=== PATIENT | male | born 1995 | race Hispanic/Latino ===

== ENCOUNTER 2025-09-20 20:33 | Inpatient (IN) | payer OTHER, SELFPAY ==
[2025-09-20] VITALS (12 sets, daily range): BP systolic 128–142; BP diastolic 66–86; PULSE 116–154; RESP 12–28; TEMP 36.8–37.3; O2SAT 98–100; BMI 32.1
--- NOTE | 2025-09-20 20:39 | EKG_ITS ---
[address] [address] Test Date: 2025-09-20 Pat Name: Jose Antonio Sewell Department: Room: Gender: Male [employer] Supervisor: VIKAS : 1995 Requested By: Order Number: [id number] Reading MD: Mahendra Chatman MD Measurements Intervals [place] Rate: 150 P: 74 TN: 124 QRS: 80 QRSD: 76 T: 73 QT: 334 QTc: 527 Interpretive Statements Critical Test Result: High HR Sinus tachycardia Electronically Signed On 09-21-2025 7:33:13 PDT by Mahendra Chatman MD
[2025-09-20] MEDS: ALBUTEROL 2.5 MG/3 ML NEB (ADULT) 10 MG INH (20:48)
[2025-09-20] MEDS: MAGNESIUM SULFATE 2 GM/50 ML PIGGYBACK IV (20:48)
[2025-09-20] MEDS: IPRATROPIUM 0.5 MG/2.5 ML NEB 2 MG INH (20:48)
--- NOTE | 2025-09-20 20:48 | ED.ASTHMA ---
HPI - Asthma General Chief Complaint: Asthma Stated Complaint: SOB, asthma Time Seen by Provider: 09/20/25 20:36 Source: EMS Mode of arrival: EMS History of Present Illness HPI Narrative: 30-year-old male with history of asthma, had sudden onset shortness of breath, difficulty breathing, EMS called, they administered intramuscular epinephrine, no hives or tongue swelling or lip swelling, during transport was also given IV Solu-Medrol and breathing treatment. Still quite short of breath with tachycardia and wheezing on arrival. No recent cough or fevers. No leg pain or swelling symptoms. No known skin rashes or itching or allergic reaction like symptoms. Unclear trigger to his shortness of breath. No trauma or injury. No new medications. No known drug use. Later arriving significant other reports that patient was in [facility] emergency department 2 weeks ago with abdominal pain, CT scan then did not show appendicitis, concern for ?stomach bug? discharge without antibiotics to home. Related Data Allergies Allergy/AdvReac Type Severity Reaction Status Date / Time No Known Drug Allergies Allergy Verified 09/20/25 20:42 Patient History Social History Smoking Status: Never smoker Smoking Status: Never smoker Exam Narrative Exam Narrative: GENERAL: Well-developed patient, in mild distress. HEAD: Atraumatic. Normocephalic. EYES: Pupils equal round and reactive. Extraocular motions intact. No scleral icterus. No injection or drainage. ENT: Nose without bleeding, purulent drainage. Throat without erythema, tonsillar hypertrophy or exudate. Airway patent. NECK: Trachea midline. Non tender CARDIOVASCULAR: Regular rate and rhythm without murmurs, gallops, or rubs. RESPIRATORY: Clear to auscultation. Breath sounds equal bilaterally. No wheezes, rales, or rhonchi. GASTROINTESTINAL: Abdomen soft, non-tender, nondistended. EXTREMITIES: No edema or joint tenderness. BACK: Nontender without deformity or crepitance. No flank tenderness. NEURO: AOx3. Motor functions grossly nonfocal. SKIN: No rash or erythema of visible areas Initial Vital Signs Initial Vital Signs: Vital Signs Pulse Rate 154 H 09/20/25 20:36 Pulse Oximetry 99 09/20/25 20:36 Course Orders Ordered: ED Orders 09/20/25 21:34 XR chest 1V Stat 09/20/25 21:45 CT abdomen pelvis w con Stat 09/20/25 21:46 CT angio chest PE protocol Stat 09/20/25 22:00 Urine Culture Stat Urine Microscopic Stat 09/20/25 23:33 Lactate (Lactic Acid) Stat 09/20/25 23:38 EKG-12 Lead Stat Acetaminophen (Acetaminophen 325 Mg Tablet) 650 mg PO Q6H PRN PRN Reason: Fever/Mild Pain (1-3) Al Hydrox/Mg Hydrox/Simethicone (Mag Hydrox/Alum/Simeth 30 Ml Udc) 30 ml PO Q6HR PRN PRN Reason: Dyspepsia Albuterol (Albuterol 2.5 Mg/3 Ml Neb (Adult)) 2.5 mg INH [id number] PRN PRN Reason: Shortness Of Breath Albuterol/Ipratropium (Albuterol/Ipratropium 3 Ml Ampul) 3 ml INH [id number] MARTIN Azithromycin (Azithromycin 250 Mg Tablet) 500 mg PO BEDTIME MARTIN Guaifenesin (Guaifenesin Er 600 Mg Tab) 600 mg PO Q12HR PRN PRN Reason: Cough Sodium Chloride (Normal Saline 0.9%) 1,000 mls @ 125 mls/hr IV CONT [facility] Last Admin: 09/21/25 03:00 Dose: 125 mls/hr Documented By: FM Ibuprofen (Ibuprofen 600 Mg Tablet) 600 mg PO Q6H PRN PRN Reason: Fever/Mild Pain (1-3) Lorazepam (Lorazepam 1 Mg Tablet) 1 mg PO Q6HR PRN PRN Reason: Anxiety Last Admin: 09/21/25 02:15 Dose: 1 mg Documented By: FM Methylprednisolone (Methylprednisolone Succ 125 Mg/2 Ml Vial) 125 mg IV Q6H [facility] Last Admin: 09/21/25 02:17 Dose: 125 mg Documented By: FM Montelukast Sodium (Montelukast 10 Mg Tablet) 10 mg PO DAILY [facility] Naloxone HCl (Naloxone 0.4 Mg/Ml Vial) 0.2 mg IV Q2MIN PRN PRN Reason: Opiate Reversal Ondansetron HCl (Ondansetron 4 Mg/2 Ml Inj) 4 mg IV Q8HR PRN PRN Reason: Nausea And Vomiting Oxycodone HCl (Oxycodone Ir 5 Mg Tablet) 5 mg PO Q3H PRN PRN Reason: Pain, Moderate (4-6) Last Admin: 09/21/25 02:17 Dose: 5 mg Documented By: FM Pantoprazole Sodium (Pantoprazole Dr 20 Mg Tablet) 20 mg PO 0600 MARTIN Sennosides (Sennosides 8.6 Mg Tablet) 17.2 mg PO BEDTIME MARTIN Discontinued Medications Albuterol (Albuterol 2.5 Mg/3 Ml Neb (Adult)) 10 mg INH NOW ONE Stop: 09/20/25 20:37 Last Admin: 09/20/25 20:48 Dose: 10 mg Documented By: YAZAN Hydromorphone HCl (Hydromorphone Hcl 0.5 Mg/0.5 Ml Syringe) 0.5 mg IV NOW ONE Stop: 09/20/25 23:29 Last Admin: 09/20/25 23:45 Dose: 0.5 mg Documented By: Magnesium Sulfate (Magnesium Sulfate) 2 gm in 50 mls @ 150 mls/hr IV NOW ONE Stop: 09/20/25 20:57 Last Infusion: 09/20/25 21:27 Dose: Infused Documented By: MANNY Co-signed By: Admin: 09/20/25 20:48 Dose: 150 mls/hr Documented By: MANNY Co-signed By: Azithromycin 500 mg/ Dextrose 250 mls @ 250 mls/hr IV NOW ONE Stop: 09/20/25 21:34 Last Infusion: 09/20/25 23:35 Dose: Infused Documented By: Admin: 09/20/25 22:21 Dose: 250 mls/hr Documented By: MANNY Sodium Chloride (Normal Saline 0.9%) 1,000 mls @ 1,000 mls/hr IV BOLUS ONE Stop: 09/20/25 22:38 Last Infusion: 09/20/25 23:36 Dose: Infused Documented By: Admin: 09/20/25 22:20 Dose: 1,000 mls/hr Documented By: MANNY Sodium Chloride (Normal Saline 0.9%) 1,000 mls @ 1,000 mls/hr IV BOLUS ONE Stop: 09/21/25 00:57 Last Admin: 09/21/25 00:09 Dose: 1,000 mls/hr Documented By: Ipratropium [place] (Ipratropium 0.5 Mg/2.5 Ml Neb) 2 mg INH NOW ONE Stop: 09/20/25 20:38 Last Admin: 09/20/25 20:48 Dose: 2 mg Documented By: PV Ondansetron HCl (Ondansetron 4 Mg/2 Ml Inj) 4 mg IV NOW ONE Stop: 09/20/25 22:34 Last Admin: 09/20/25 22:36 Dose: 4 mg Documented By: Potassium Chloride (Potassium Chloride 20 Meq/15 Ml Udc) 40 meq PO NOW ONE Stop: 09/20/25 23:57 Last Admin: 09/21/25 00:27 Dose: 40 meq Documented By: LISBETH Vital Signs Vital signs: Vital Signs - 8 hr 09/20/25 22:11 09/20/25 22:12 09/20/25 22:12 Temperature Pulse Rate 131 H 128 H Respiratory Rate 14 Blood Pressure 132/72 Pulse Oximetry 100 100 Oxygen Delivery Method Oxygen Flow Rate 09/20/25 22:30 09/20/25 22:30 09/20/25 23:00 Temperature Pulse Rate 121 H Respiratory Rate 16 Blood Pressure 140/86 131/77 Pulse Oximetry 99 Oxygen Delivery Method Nasal Cannula Oxygen Flow Rate 2 09/20/25 23:00 09/20/25 23:30 09/20/25 23:30 Temperature 98.2 F Pulse Rate 120 H 116 H Respiratory Rate 19 15 Blood Pressure 128/68 Pulse Oximetry 99 98 Oxygen Delivery Method Oxygen Flow Rate MDM - Asthma Lab Data Attestation: I reviewed the patient's lab results. Lab results narrative: White blood cell count 90103, hemoglobin 16, platelets adequate. VBG shows pH 7.33. Glucose 185. BUN 21 with creatinine 1.0, serum CO2 normal 24, potassium 3.0 low, sodium 142 normal. Slight ALT elevation, other liver functions normal. Lipase 79 normal. Troponin negative/unmeasurable. Urinalysis negative. Lactate 4.3 elevated. Blood cultures pending. COVID flu RSV negative. 09/20/25 20:50 09/20/25 20:50 Labs: Lab Results 09/20/25 09/20/25 09/20/25 Range/Units 20:50 20:55 20:57 WBC 20.1 H (4.5-11.0) X10^3/uL RBC 5.32 (4.5-5.9) X10^6/uL Hgb 16.0 (13.5-17.5) g/dL Hct 46.5 (41-53) % MCV 87.5 (80-100) fL MCH 30.1 (26-34) PG MCHC 34.4 (30-36) % RDW 13.0 (11.6-14.8) % Plt Count 301 (150-400) X10^3/uL Neut % (Auto) 79.1 H (50-75) % Lymph % (Auto) 14.6 L (25-40) % [place] % (Auto) 4.5 (3-14) % Eos % (Auto) 1.7 L (2-4) % Baso % (Auto) 0.1 (0-2) % Neut # (Auto) 98050 H (3180-6531) /uL Lymph # (Auto) 2900 (8454-4255) /uL [place] # (Auto) 900 (0-900) /uL Eos # (Auto) 300 (0-450) /uL Baso # (Auto) 0 (0-100) /uL VBG pH 7.33 (7.33-7.43) VBG pCO2 49.3 (45-50) mmHg VBG pO2 41 (35-45) mmHg VBG HCO3 26 (24-28) mmol/L VBG Total CO2 25 (24-29) mmol/L VBG O2 Saturation 71 (70-75) % VBG Base Excess -1.0 L (0-4) mmol/L FiO2 % 50.0 % % Sodium 142 (137-145) mmol/L Potassium 3.0 L (3.4-5.1) mmol/L Chloride 102 (98-107) mmol/L Carbon Dioxide 24 (22-32) mmol/L BUN 21 H (9-20) mg/dL Creatinine 1.00 (0.66-1.25) mg/dL Estimated GFR > 60 (>60) mL/min BUN/Creatinine Ratio 21.0 (6-22) Glucose 185 H (70-99) mg/dL Lactate (0.7-2.1) mmol/L Calcium 9.2 (8.4-10.2) mg/dL Magnesium 2.0 (1.6-2.3) mg/dL Total Bilirubin 0.8 (0.2-1.3) mg/dL AST 52 (17-59) IU/L ALT 58 H (<50) IU/L Alkaline Phosphatase 62 (38-126) U/L Troponin I < 0.012 (0.01-0.034) ng/mL NT-Pro-B Natriuret Pep < 20 (<125) pg/mL Total Protein 7.8 (6.3-8.2) g/dL Albumin 4.8 (3.5-5.0) g/dL Globulin 3.0 (1.7-4.1) g/dL Albumin/Globulin Ratio 1.6 (1.0-2.8) Lipase 79 (23-300) U/L Procalcitonin 0.053 (<0.5) ng/mL Urine RBC (0-5/HPF) Urine WBC (0-5/HPF) Ur Squamous Epith Cells (0-5/HPF) Urine Bacteria (None) Hyaline Casts (None) Urine Mucus (Negative) Vol Urine Centrifuged SARS-CoV-2 (PCR) Negative (Negative) Influenza A (RT-PCR) Flu a negative (NEGATIVE) Influenza B (RT-PCR) Flu b negative (NEGATIVE) RSV (PCR) Negative (Negative) 09/20/25 09/20/25 Range/Units 22:00 23:33 WBC (4.5-11.0) X10^3/uL RBC (4.5-5.9) X10^6/uL Hgb (13.5-17.5) g/dL Hct (41-53) % MCV (80-100) fL MCH (26-34) PG MCHC (30-36) % RDW (11.6-14.8) % Plt Count (150-400) X10^3/uL Neut % (Auto) (50-75) % Lymph % (Auto) (25-40) % Hod[place] % (Auto) (3-14) % Eos % (Auto) (2-4) % Baso % (Auto) (0-2) % Neut # (Auto) (9634-7902) /uL Lymph # (Auto) (6505-2537) /uL [place] # (Auto) (0-900) /uL Eos # (Auto) (0-450) /uL Baso # (Auto) (0-100) /uL VBG pH (7.33-7.43) VBG pCO2 (45-50) mmHg VBG pO2 (35-45) mmHg VBG HCO3 (24-28) mmol/L VBG Total CO2 (24-29) mmol/L VBG O2 Saturation (70-75) % VBG Base Excess (0-4) mmol/L FiO2 % % Sodium (137-145) mmol/L Potassium (3.4-5.1) mmol/L Chloride (98-107) mmol/L Carbon Dioxide (22-32) mmol/L BUN (9-20) mg/dL Creatinine (0.66-1.25) mg/dL Estimated GFR (>60) mL/min BUN/Creatinine Ratio (6-22) Glucose (70-99) mg/dL Lactate 4.3 H* (0.7-2.1) mmol/L Calcium (8.4-10.2) mg/dL Magnesium (1.6-2.3) mg/dL Total Bilirubin (0.2-1.3) mg/dL AST (17-59) IU/L ALT (<50) IU/L Alkaline Phosphatase (38-126) U/L Troponin I (0.01-0.034) ng/mL NT-Pro-B Natriuret Pep (<125) pg/mL Total Protein (6.3-8.2) g/dL Albumin (3.5-5.0) g/dL Globulin (1.7-4.1) g/dL Albumin/Globulin Ratio (1.0-2.8) Lipase (23-300) U/L Procalcitonin (<0.5) ng/mL Urine RBC None seen (0-5/HPF) Urine WBC None seen (0-5/HPF) Ur Squamous Epith Cells 0-1 /hpf (0-5/HPF) Urine Bacteria None seen (None) Hyaline Casts 0-1/lpf (None) Urine Mucus 1+ H (Negative) Vol Urine Centrifuged 10ml (spun) SARS-CoV-2 (PCR) (Negative) Influenza A (RT-PCR) (NEGATIVE) Influenza B (RT-PCR) (NEGATIVE) RSV (PCR) (Negative) Urine Dip Bedside Urine Glucose Negative Bedside Urine Bilirubin - Negative Bedside Urine Ketone + 15 Urine Specific [place] 1.025 Bedside Urine Occult Blood - Negative Bedside Urine pH 6.0 Bedside Urine Protein + 30 Bedside Urine Urobilinogen - Negative Bedside Urine Nitrite - Negative Bedside Urine Leukocytes - Negative Esterase ECG Data Attestation: I personally reviewed and interpreted this ECG as follows: Interpretation: 2040, sinus tachycardia with rate of 150, no obvious ST segment elevation or depression changes. RR intervals regular, appears to be sinus tachycardia. MD 124, QRS 76, QTC 527. 2356, sinus tachycardia with rate of 110, no obvious ST segment elevation or depression changes. MD 170, QRS 90, QTC 487. MDM Narrative Medical decision making narrative: 30-year-old male with history of asthma had sudden onset shortness of breath without obvious allergic reaction, EMS initiated epinephrine and continuous nebulized bronchodilator, and gave IV Solu-Medrol during transport. Initial saturation reported 58%. No hives or tongue swelling or skin rashes. No new medication exposures known. No bites or stings or exposures to allergens seem obvious by history. No recent cough cold like symptoms. RT at bedside, patient with low sats wheezing, we will continue nebulized bronchodilator continuous, narrow complex tachycardia after epinephrine and breathing treatments, normotensive so far. We will add BiPAP. Labs including blood gas pending. Chest x-ray pending. We will add IV magnesium. Nebulized albuterol 10 mg with ipratropium 2 mg to be nebulized and continuous, through mask for now but we will transition to BiPAP for continued nebulizer therapy. VBG shows pH 7.37, pCO2 49, PaO2 41. Venous sample. BiPAP and affect with continuous breathing treatment in line. IV Solu-Medrol given by EMS. IV magnesium added. Intramuscular Epinephrine given by EMS apparently due to sudden onset of shortness of breath, apparently in case of allergic reaction trigger. Sinus tachycardia, no longer 150s, seems to be 130s with in-line breathing treatment. Narrow complex. Chest x-ray still to be performed. COVID/flu swab results pending. White blood cell count , blood cultures requested, IV azithromycin. Lab data: White blood cell count , hemoglobin 16, platelets adequate. VBG shows pH 7.33. Glucose 185. BUN 21 with creatinine 1.0, serum CO2 normal 24, potassium 3.0 low, sodium 142 normal. Slight ALT elevation, other liver functions normal. Lipase 79 normal. Troponin negative/unmeasurable. Urinalysis negative. Lactate 4.3 elevated. Blood cultures pending. COVID flu RSV negative. Chest x-ray single view. Impression: ?No acute findings. ? See tele radiology report. CTA chest PE protocol. Impression: ?Trace pneumomediastinum. No other acute intrathoracic findings. No evidence of pulmonary embolism. See tele radiology report. CT abdomen and pelvis IV contrast. Impression: ?No acute findings.? See tele radiology report. No local PCP, recently moved to the area, history of asthma, has topical inhalers and steroid inhalers, never intubated for his asthma. Made aware of CT findings of trace pneumomediastinum. Has improvement in heart rate 150s now 110-120 range. Normotensive. Weaned from BiPAP to mask and now to nasal cannula oxygen. Further treatment as inpatient, patient agreeable. Will contact hospitalist. Potassium 3.0, oral potassium ordered. 2349, case discussed with hospitalist Dr. Stiles who accepts patient for admission 2355, repeat EKGs sinus tachycardia again noted, but 110 improved from previous 150 range. No obvious ischemic changes. Lactate 4 elevated, likely due to severe hypoxia, but also consider sepsis/severe sepsis, IV fluids given, IV antibiotics initiated earlier. Consider repeat lactate after further IV fluids. No definite source of infection on imaging or urinalysis. Suspect lactate elevation due to severe hypoxia on initial presentation. Critical Care Time Critical Care Time Critical Care Time: Yes Total Critical Care Time: 35 Attestation: The high probability of a clinically significant, sudden or life threatening deterioration of the [respiratory, cardiopulmonary, metabolic] system(s) required my full and direct attention, intervention and personal management. The aggregate critical care time was [35] minutes. This time is in addition to time spent performing reported procedures but includes the following: [x] Data Review and interpretation [x] Patient assessment and monitoring of vital signs [x] Documentation [x] Medication orders and management Discharge Plan Departure Patient Disposition: Admitted As Inpatient Clinical Impression: Asthma with acute exacerbation, Pneumomediastinum, Hypoxia, Hypokalemia Admit Date/Time: 09/20/25 23:55 Admit Provider: Jv Mendes
[2025-09-20 21:00] LABS: Base Excess VBG -1.0 mmol/L (0-4); HCO3 VBG 26 mmol/L (24-28); Oxygen Saturation VBG 71 % (70-75); PCO2 VBG 49.3 mmHg (45-50); PO2 VBG 41 mmHg (35-45); Total CO2 VBG 25 mmol/L (24-29); pH VBG 7.33 (7.33-7.43)
[2025-09-20 21:07] LABS: Add Manual Diff / Slide Review NO; Hematocrit 46.5 % (41-53); Hemoglobin 16.0 g/dL (13.5-17.5); Lymphocytes Absolute Auto 2900 /uL (1100-4500); Mean Corpuscular HGB Conc 34.4 % (30-36); Mean Corpuscular Hemoglobin 30.1 PG (26-34); Mean Corpuscular Volume 87.5 fL (80-100); Platelet Count 301 X10^3/uL (150-400)
[2025-09-20 21:21] LABS: Magnesium 2.0 mg/dL (1.6-2.3)
[2025-09-20 21:34] LABS: NT-proBNP (BNP-Adult 18+) < 20 pg/mL (<125); Troponin I < 0.012 ng/mL (0.01-0.034)
--- NOTE | 2025-09-20 21:34 | DI.RAD.S_ITS ---
PROCEDURE: XR CHEST 1V INDICATIONS: dyspnea TECHNIQUE: One view of the chest was acquired. COMPARISON: [facility], CT, CT ANGIO CHEST PE PROTOCOL, 09/20/2025, 21:56. FINDINGS: Surgical changes and devices: None. Lungs and pleura: Lungs are clear. No pleural effusions or pneumothorax. Mediastinum: Mediastinal contours appear normal. Heart size is normal. Bones and chest wall: No suspicious bony lesions. Overlying soft tissues appear unremarkable. IMPRESSION: No acute cardiopulmonary abnormality is seen. This report is concordant with the overnight preliminary interpretation. Dictated by: Nikita Valenzuela M.D. on 09/21/2025 at 2:13 Approved by: Nikita Valenzuela M.D. on 09/21/2025 at 2:14
[2025-09-20 21:39] LABS: Influenza A - CEPHEID Flu A NEGATIVE (NEGATIVE); Influenza B - CEPHEID Flu B NEGATIVE (NEGATIVE)
[2025-09-20 21:39] LABS: Procalcitonin 0.053 ng/mL (<0.5)
[2025-09-20 21:43] LABS: COVID-19 CEPHEID 4-PLEX PCR Negative (Negative)
--- NOTE | 2025-09-20 21:45 | DI.CT.S_ITS ---
PROCEDURE: CT ABDOMEN PELVIS W CON INDICATIONS: abd pain TECHNIQUE: After the administration of intravenous contrast, axial sections acquired from the lung bases to the pubic symphysis. Coronal and sagittal reformats were performed. For radiation dose reduction, the following was used: automated exposure control, adjustment of mA and/or kV according to patient size. COMPARISON: [facility], CT, CT ANGIO CHEST PE PROTOCOL, 09/20/2025, 21:56. FINDINGS: Image quality: Diagnostic. Lower Chest: Dictated separately. Pneumomediastinum. ABDOMEN: Liver: No solid mass. Gallbladder: No radiopaque gallstones or wall thickening. Biliary ducts: No biliary dilation. Pancreas: No ductal dilation. Spleen: Size is within normal limits. Adrenal Glands: No adrenal nodules. Kidneys and Ureters: No hydronephrosis. Left kidney extrarenal pelvis. No solid mass. No complex renal cystic lesion which requires follow up. Stomach and Bowel: Colonic wall appears thickened. There is mild stranding about the colonic wall. The colon is mostly decompressed. There is liquid stool contents in the distal colon. The appendix is not dilated. The terminal ileum is dilated and demonstrates fecalization, (4/49). No small bowel obstruction. Fluid in the stomach. Peritoneum: No abnormal intraperitoneal fluid. No free air. Ventral Wall: No significant ventral hernia. Abdominal Nodes: No retroperitoneal or mesenteric adenopathy by size criteria. Vessels: Aorta and inferior vena cava are normal in size. PELVIS: Pelvic Organs: Unremarkable. Bladder: No bladder wall thickening, accounting for underdistention. No stone. Pelvic Nodes: No enlarged lymph nodes. Miscellaneous: No inguinal hernias are seen. Bones: No aggressive osseous abnormality. IMPRESSION: 1. Pancolitis. Favor infectious/inflammatory etiology. 2. Terminal ileum is dilated with fecalization. This could be due to ileus or possibly developing small bowel obstruction. 3. The appendix is normal. No free fluid. No pneumoperitoneum. Discrepancy with the overnight preliminary interpretation. Pancolitis. Dilated ileum. Please see separately dictated CT pulmonary angiogram. Pneumomediastinum. Comment: Findings were conveyed to the patient's nurse in the ICU, Franky at time of dictation. Reports diarrhea. No vomiting. Asthma with respiratory symptoms. Dictated by: Nikita Valenzuela M.D. on 09/21/2025 at 2:23 Approved by: Nikita Valenzuela M.D. on 09/21/2025 at 2:35
--- NOTE | 2025-09-20 21:46 | DI.CT.S_ITS ---
PROCEDURE: CT ANGIO CHEST PE PROTOCOL INDICATIONS: sudden dyspnea, sats 50%, eval PE TECHNIQUE: After the administration of intravenous contrast, 2 mm thick sections acquired from the pulmonary apices to the posterior costophrenic angles. 3-dimensional maximum intensity projection (MIP) coronal and sagittal reformats were then acquired through the thorax. For radiation dose reduction, the following was used: automated exposure control, adjustment of mA and/or kV according to patient size. COMPARISON: [facility], CT, CT ABDOMEN PELVIS W CON, 09/20/2025, 21:56. FINDINGS: Image quality: Diagnostic. Pulmonary arteries: Pulmonary arteries are normal in size, and demonstrate no intraluminal filling defects to suggest central pulmonary embolism. Lower Neck: No enlarged lymph nodes. Thyroid: No thyroid nodules which require sonographic follow up, per consensus guidelines. Axillae: No enlarged lymph nodes. Chest Wall: Unremarkable. Bones: No suspicious osseous lesion. Lungs and Pleura: No acute airspace opacity. No mass or significant pulmonary nodules. The central airways are clear. There is scant air tracking along the left major fissure and cardiophrenic angle. This could represent tiny pneumothorax. No air is seen at the lateral pleural space. No pleural effusion. Heart: Heart size is normal. No pericardial effusion. Thoracic Vessels: No aortic aneurysm. No aortic dissection. Mediastinum and Elizabeth: No enlarged lymph nodes. Pneumomediastinum. Air is seen in the anterior mediastinum, left lateral, and posterior paraesophageal. Esophagus: No wall thickening. No hiatal hernia. Upper Abdomen: Visualized upper abdomen solid organs and bowel loops appear normal. IMPRESSION: 1. No pulmonary embolism. 2. No acute airspace opacity. 3. Pneumomediastinum. This could be seen in the setting of esophageal rupture, especially if the patient has been vomiting. 4. Trace gas is seen at the left minor fissure and left cardiophrenic angle. This could represent tiny pneumothorax but could also be air tracking from the mediastinum. No significant discrepancy with the overnight preliminary interpretation. Dictated by: Nikita Valenzuela M.D. on 09/21/2025 at 2:14 Approved by: Nikita Valenzuela M.D. on 09/21/2025 at 2:22
[2025-09-20] MEDS: SODIUM CHLORIDE 0.9% 1,000 ML 1000 ML IV (22:20)
[2025-09-20] MEDS: AZITHROMYCIN 500 MG in DEXTROSE 5% IN WATER 250 ML 250 MG IV (22:21)
[2025-09-20] MEDS: ONDANSETRON 4 MG/2 ML INJ IV (22:36)
--- NOTE | 2025-09-20 23:38 | EKG_ITS ---
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
[2025-09-20 23:51] LABS: Alanine Aminotransferase 58 IU/L (<50); Albumin 4.8 g/dL (3.5-5.0); Albumin Globulin Ratio 1.6 (1.0-2.8); Alkaline Phosphatase 62 U/L (38-126); Blood Urea Nitrogen 21 mg/dL (9-20); Calcium 9.2 mg/dL (8.4-10.2); Carbon Dioxide 24 mmol/L (22-32); Chloride 102 mmol/L (98-107); Estimated Glomerular Filt Rate > 60 mL/min (>60); Globulin 3.0 g/dL (1.7-4.1); Glucose 185 mg/dL (70-99); HEMOLYSIS 17 (0-50); Lipase 79 U/L (23-300); Potassium 3.0 mmol/L (3.4-5.1); Sodium 142 mmol/L (137-145); Total Protein 7.8 g/dL (6.3-8.2)
[2025-09-20 23:57] LABS: Lactate (Lactic Acid) 4.3 mmol/L (0.7-2.1)
[2025-09-21] VITALS (34 sets, daily range): BP systolic 117–139; BP diastolic 64–84; PULSE 97–129; RESP 12–20; TEMP 36.4–36.9; O2SAT 94–100; BMI 32.1
--- NOTE | 2025-09-21 | DI.RAD.S_ITS ---
PROCEDURE: FL BARIUM SWALLOW INDICATIONS: Pneumomediastinum. COMPARISON: None. FINDINGS: Upright images obtained in PA and LPO positioning of the upper and lower esophagus demonstrate normal transit of contrast from the esophagus to the stomach with no leakage of contrast or extraluminal pooling of contrast. Esophageal mucosa and motility are normal. IMPRESSION: No evidence of leak. Dictated by: Charles Sweeney M.D. on 09/21/2025 at 18:52 Approved by: Charles Sweeney M.D. on 09/21/2025 at 18:54
[2025-09-21] MEDS: SODIUM CHLORIDE 0.9% 1,000 ML 1000 ML IV (00:09)
[2025-09-21] MEDS: POTASSIUM CHLORIDE 20 MEQ/15 ML UDC 40 MEQ PO (00:27)
[2025-09-21 01:17] LABS: Reflexed Lactate in 2 Hours Y
--- NOTE | 2025-09-21 01:24 | P.HP_ITS ---
History of Present Illness History of Present Illness Date Patient Seen: 09/21/25 Chief complaint: SOB, asthma Narrative: The pt is a 30 yo who presents to the ER with severe SOB and wheezing that [place]. He states that he only uses Albuterol for a rescue inhaler but does admit that he takes it several times a day. There has been no recent infections, URI, fevers, chills, V/N other than 2 weeks ago he was seen in the ER for gastroenteritis. Steven was on allergy shots which improved his asthma symptoms greatly while living in [place] but over the past 4 months since moving to [place] he has not been on allergy shots, not seen any providers and only takes albuterol [facility] Social History Smoking Status: Never smoker Meds Home Medications and Allergies Allergies Allergy/AdvReac Type Severity Reaction Status Date / Time No Known Drug Allergies Allergy Verified 09/20/25 20:42 Exam Vital Signs (past 8 hours): - 09/20/25 20:36 09/20/25 20:37 09/20/25 20:37 Temperature Pulse Rate 154 H 151 H Respiratory Rate Blood Pressure 142/76 H Pulse Oximetry 99 98 Oxygen Delivery Method Aerosol Mask Oxygen Flow Rate 10 Fraction of Inspired Oxygen 09/20/25 20:41 09/20/25 20:49 09/20/25 21:00 Temperature 99.2 F Pulse Rate 143 H 147 H 137 H Respiratory Rate 24 28 H 19 Blood Pressure 142/86 H Pulse Oximetry 98 98 99 Oxygen Delivery Method Aerosol Mask Aerosol Mask Oxygen Flow Rate 10 8 Fraction of Inspired Oxygen 50 09/20/25 21:00 09/20/25 21:18 09/20/25 21:30 Temperature Pulse Rate Respiratory Rate Blood Pressure 138/66 138/66 138/80 Pulse Oximetry Oxygen Delivery Method Oxygen Flow Rate Fraction of Inspired Oxygen 30 09/20/25 21:30 09/20/25 22:11 09/20/25 22:12 Temperature Pulse Rate 140 H 131 H 128 H Respiratory Rate 24 14 Blood Pressure Pulse Oximetry 100 100 100 Oxygen Delivery Method BiPAP Oxygen Flow Rate Fraction of Inspired Oxygen 09/20/25 22:12 09/20/25 22:30 09/20/25 22:30 Temperature Pulse Rate 121 H Respiratory Rate 16 Blood Pressure 132/72 140/86 Pulse Oximetry 99 Oxygen Delivery Method Nasal Cannula Oxygen Flow Rate 2 Fraction of Inspired Oxygen 09/20/25 23:00 09/20/25 23:00 09/20/25 23:30 Temperature Pulse Rate 120 H 116 H Respiratory Rate 19 15 Blood Pressure 131/77 Pulse Oximetry 99 98 Oxygen Delivery Method Oxygen Flow Rate Fraction of Inspired Oxygen 09/20/25 23:30 09/21/25 00:00 09/21/25 00:00 Temperature 98.2 F Pulse Rate 110 H Respiratory Rate 14 Blood Pressure 128/68 117/64 Pulse Oximetry 95 Oxygen Delivery Method Oxygen Flow Rate Fraction of Inspired Oxygen 09/21/25 00:30 09/21/25 00:30 Temperature Pulse Rate 122 H Respiratory Rate 18 Blood Pressure 121/67 Pulse Oximetry 97 Oxygen Delivery Method Oxygen Flow Rate Fraction of Inspired Oxygen Fraction of Inspired Oxygen 30 SaO2/FiO2 Ratio 196 Oxygen Delivery Method Nasal Cannula Oxygen Flow Rate 2 Narrative Exam Narrative: conversant without dyspnea Const General: cooperative and comfortable Resp Auscultation: wheezes Cardio Rate: regular rate Rhythm: regular rhythm Extrem General: no clubbing, cyanosis or edema Objective Labs 09/20/25 20:50 09/20/25 20:50 Labs: Laboratory Results - last 24 hr 09/20/25 09/20/25 09/20/25 20:50 20:55 20:57 WBC 20.1 H RBC 5.32 Hgb 16.0 Hct 46.5 MCV 87.5 MCH 30.1 MCHC 34.4 RDW 13.0 Plt Count 301 Neut % (Auto) 79.1 H Lymph % (Auto) 14.6 L [place] % (Auto) 4.5 Eos % (Auto) 1.7 L Baso % (Auto) 0.1 Neut # (Auto) 16282 H Lymph # (Auto) 2900 [place] # (Auto) 900 Eos # (Auto) 300 Baso # (Auto) 0 VBG pH 7.33 VBG pCO2 49.3 VBG pO2 41 VBG HCO3 26 VBG Total CO2 25 VBG O2 Saturation 71 VBG Base Excess -1.0 L FiO2 % 50.0 % Sodium 142 Potassium 3.0 L Chloride 102 Carbon Dioxide 24 BUN 21 H Creatinine 1.00 Estimated GFR > 60 BUN/Creatinine Ratio 21.0 Glucose 185 H Lactate Calcium 9.2 Magnesium 2.0 Total Bilirubin 0.8 AST 52 ALT 58 H Alkaline Phosphatase 62 Troponin I < 0.012 NT-Pro-B Natriuret Pep < 20 Total Protein 7.8 Albumin 4.8 Globulin 3.0 Albumin/Globulin Ratio 1.6 Lipase 79 Procalcitonin 0.053 Urine RBC Urine WBC Ur Squamous Epith Cells Urine Bacteria Hyaline Casts Urine Mucus Vol Urine Centrifuged SARS-CoV-2 (PCR) Negative Influenza A (RT-PCR) Flu a negative Influenza B (RT-PCR) Flu b negative RSV (PCR) Negative 09/20/25 09/20/25 22:00 23:33 WBC RBC Hgb Hct MCV MCH MCHC RDW Plt Count Neut % (Auto) Lymph % (Auto) [place] % (Auto) Eos % (Auto) Baso % (Auto) Neut # (Auto) Lymph # (Auto) [place] # (Auto) Eos # (Auto) Baso # (Auto) VBG pH VBG pCO2 VBG pO2 VBG HCO3 VBG Total CO2 VBG O2 Saturation VBG Base Excess FiO2 % Sodium Potassium Chloride Carbon Dioxide BUN Creatinine Estimated GFR BUN/Creatinine Ratio Glucose Lactate 4.3 H* Calcium Magnesium Total Bilirubin AST ALT Alkaline Phosphatase Troponin I NT-Pro-B Natriuret Pep Total Protein Albumin Globulin Albumin/Globulin Ratio Lipase Procalcitonin Urine RBC None seen Urine WBC None seen Ur Squamous Epith Cells 0-1 /hpf Urine Bacteria None seen Hyaline Casts 0-1/lpf Urine Mucus 1+ H Vol Urine Centrifuged 10ml (spun) SARS-CoV-2 (PCR) Influenza A (RT-PCR) Influenza B (RT-PCR) RSV (PCR) Assessment & Plan Assessment & Plan narrative: I have discussed the pt's presenting symptoms, labs and imaging with the ER provider and agree with the decision for admission. I have personally reviewed the labs showing a WBC of 20, hgb-16, k-3.0, CXR showing no acute infiltrates. 1. Asthma acute exacerbation- will continue the pt on Solumedrol 125 mg iV Q6, duo-nebs, albuterol Q2 prn, Singulair, empiric Azithromycin, repeat labs in am, Elevated WBC but I think this is stress induced, anti-emtics, ativan ordered prn, I discused the need for him to see a PCP as an outpt and start long acting inhalers daily and only using albuterol as needed. I, Dr. Jv Mendes in [place] has seen and rashad Sewell in [place] using audio/ video of telemedicine with the pt's consent and nursing assistance. Time-Based Coding :: [TOTAL MINUTES] spent with patient and on the chart (including review of chart, obtaining history, exam, reviewing outside data, placing orders, documenting exam and treatment plan, and counseling patient) on [DATE].
[2025-09-21] MEDS: methylPREDNISolone succ 125 MG/2 ML VIAL IV ×4 (02:17→18:04)
[2025-09-21] MEDS: SODIUM CHLORIDE 0.9% 1,000 ML 125 ML IV (03:00)
--- NOTE | 2025-09-21 03:15 | PC.NURSE ---
Received a a call from radiologist who interpreted the CT scan of abdomen and pelvis, finding of pancolitis, hospitalist bone density technician updated via [employer]. Patient currently sleeping after administration of ativan and pain medication.
[2025-09-21 03:35] LABS: Lactate 2HR (Lactic Acid Rflx) 4.1 mmol/L (0.7-2.1)
[2025-09-21 07:56] LABS: Add Manual Diff / Slide Review NO; Hematocrit 41.6 % (41-53); Hemoglobin 14.3 g/dL (13.5-17.5); Lymphocytes Absolute Auto 700 /uL (1100-4500); Mean Corpuscular HGB Conc 34.4 % (30-36); Mean Corpuscular Hemoglobin 30.0 PG (26-34); Mean Corpuscular Volume 87.2 fL (80-100); Platelet Count 263 X10^3/uL (150-400)
[2025-09-21 08:06] LABS: Lactate (Lactic Acid) 2.2 mmol/L (0.7-2.1)
[2025-09-21 08:14] LABS: Blood Urea Nitrogen 13 mg/dL (9-20); Calcium 9.1 mg/dL (8.4-10.2); Carbon Dioxide 20 mmol/L (22-32); Chloride 106 mmol/L (98-107); Estimated Glomerular Filt Rate > 60 mL/min (>60); Glucose 159 mg/dL (70-99); HEMOLYSIS < 15 (0-50); Potassium 4.0 mmol/L (3.4-5.1); Sodium 137 mmol/L (137-145)
[2025-09-21] MEDS: PANTOPRAZOLE DR 20 MG TABLET PO (08:14)
[2025-09-21] MEDS: MONTELUKAST 10 MG TABLET PO (08:15)
--- NOTE | 2025-09-21 08:18 | CM.DANOTE ---
Initial DCP Assessment Note. Review EMR and PT Interview. Met with patient at bedside to discuss discharge needs.PT is alert x 4 sitting up in bed. No acute distress. Independent. Lives with . Payor:??[employer] PCP: Inprogress Summary & Plan:?30 y/o male OBS. Arrived to ED c/o SOB. Admitted. Dx. Asthma. Symptoms resolving. RA Sat 96%. Plan: Nebs PRN. Oxy-Walk. Possible DC later today. ? Discharge Planning/Care Management CM Discharge Assessment Start: 09/21/25 00:36 Freq: Status: Active Protocol: Document 09/21/25 08:16 (Rec: 09/21/25 08:18 [id number]) Discharge Planning Assessment Assigned Discharge Nichole Miller RN, CM Developer Advisor Insurance [employer] Insurance Comment Active looking for a PCP. Patient is new to the area. Advance Directives? No History Provided By Patient Has Patient been No admitted in last 30 days? Prior Living House Arrangements Household Members spouse Type of Drives own vehicle transporation used prior to admit Independent with ADL Yes 's Is patient alert and Yes oriented? Barriers to No Discharge Discharge Plan Home Transportation Arrangement Referrals Initiated None needed Review Status In Process Please Provide Date 09/21/25 Initial DC Assessment Was Performed Next Review Type Continued Stay Review
[2025-09-21] MEDS: ALBUTEROL/IPRATROPIUM 3 ML AMPUL INH ×3 (08:46→17:55)
--- NOTE | 2025-09-21 09:10 | PM.HP.1 ---
History of Present Illness History of Present Illness Date Patient Seen: 09/21/25 Time Patient Seen: 09:11 Chief complaint: SOB, asthma Narrative: Summary (Dr. Cinthya Coker): The pt is a 30 yo who presents to the ER with severe SOB and wheezing that [place]. He states that he only uses Albuterol for a rescue inhaler but does admit that he takes it several times a day. There has been no recent infections, URI, fevers, chills, V/N other than 2 weeks ago he was seen in the ER for gastroenteritis. Steven was on allergy shots which improved his asthma symptoms greatly while living in [place] but over the past 4 months since moving to [place] he has not been on allergy shots, not seen any providers and only takes albuterol . ED: Imaging indicated pneumomediastinum and colitis. S: He was feeling better, still on oxygen and still somewhat short of breath. He does have pleuritic chest pain. He was abdominal tenderness in his having intermittent diarrhea for the past several weeks. No blood or mucus. O: NAD, alert and oriented, fluent speech, calm. Normocephalic skull, EOMI, anicteric sclera, symmetric pupils. Oropharynx unremarkable, no droop. Neck supple, midline trachea, no adenopathy. Lungs clear, normal rate and effort. Minimal wheezing. Diminished breath sounds globally. Heart regular, no murmur gallop or rub. Abdomen is soft, non distended and mildly tender. Extremities are free of edema. Skin is free of rash or lesions. Joints are not swollen or deformed. Judgment appears to be normal. IMAGING: A/P: 1. Asthma exacerbation, improving. 2. Pneumomediastinum, stable. 3. Colitis, active. 4. Leukocytosis, improving. 5. Lactic acidosis, improving. PLAN: -surgical review imaging with regard to pneumomediastinum and colitis and make recommendations. -continue to treat asthma with steroids and bronchodilators. -stool PCR and monitor abdominal pain and white count. -IV fluids and trend lactic acidosis. [facility] Social History household members: spouse Smoking Status: Never smoker Meds Home Medications and Allergies Allergies Allergy/AdvReac Type Severity Reaction Status Date / Time No Known Drug Allergies Allergy Verified 09/20/25 20:42 Review of Systems Review of Systems Narrative: All else reviewed and otherwise unremarkable except as noted in the history and physical. Exam Vital Signs (past 8 hours): - 09/21/25 01:20 09/21/25 01:20 09/21/25 01:36 Temperature 97.6 F Pulse Rate Respiratory Rate Blood Pressure 139/76 Pulse Oximetry Oxygen Delivery Method Nasal Cannula Oxygen Flow Rate 09/21/25 08:00 Temperature 97.8 F Pulse Rate 118 H Respiratory Rate 16 Blood Pressure 129/82 Pulse Oximetry 98 Oxygen Delivery Method Oxygen Flow Rate 0 Fraction of Inspired Oxygen 30 SaO2/FiO2 Ratio 196 Oxygen Delivery Method Nasal Cannula Oxygen Flow Rate 0 Objective ECG Impression: Intervals [place] Rate: 110 P: 42 TN: 170 QRS: 62 QRSD: 90 T: 59 QT: 360 QTc: 487 Interpretive Statements Sinus tachycardia Labs 09/21/25 07:45 09/21/25 07:45 Labs: Laboratory Results - last 24 hr 09/20/25 09/20/25 09/20/25 20:50 20:55 20:57 WBC 20.1 H RBC 5.32 Hgb 16.0 Hct 46.5 MCV 87.5 MCH 30.1 MCHC 34.4 RDW 13.0 Plt Count 301 Neut % (Auto) 79.1 H Lymph % (Auto) 14.6 L [place] % (Auto) 4.5 Eos % (Auto) 1.7 L Baso % (Auto) 0.1 Neut # (Auto) 23640 H Lymph # (Auto) 2900 [place] # (Auto) 900 Eos # (Auto) 300 Baso # (Auto) 0 VBG pH 7.33 VBG pCO2 49.3 VBG pO2 41 VBG HCO3 26 VBG Total CO2 25 VBG O2 Saturation 71 VBG Base Excess -1.0 L FiO2 % 50.0 % Sodium 142 Potassium 3.0 L Chloride 102 Carbon Dioxide 24 BUN 21 H Creatinine 1.00 Estimated GFR > 60 BUN/Creatinine Ratio 21.0 Glucose 185 H Lactate Calcium 9.2 Magnesium 2.0 Total Bilirubin 0.8 AST 52 ALT 58 H Alkaline Phosphatase 62 Troponin I < 0.012 NT-Pro-B Natriuret Pep < 20 Total Protein 7.8 Albumin 4.8 Globulin 3.0 Albumin/Globulin Ratio 1.6 Lipase 79 Procalcitonin 0.053 Urine RBC Urine WBC Ur Squamous Epith Cells Urine Bacteria Hyaline Casts Urine Mucus Vol Urine Centrifuged SARS-CoV-2 (PCR) Negative Influenza A (RT-PCR) Flu a negative Influenza B (RT-PCR) Flu b negative RSV (PCR) Negative 09/20/25 09/20/25 09/21/25 22:00 23:33 03:12 WBC RBC Hgb Hct MCV MCH MCHC RDW Plt Count Neut % (Auto) Lymph % (Auto) [place] % (Auto) Eos % (Auto) Baso % (Auto) Neut # (Auto) Lymph # (Auto) [place] # (Auto) Eos # (Auto) Baso # (Auto) VBG pH VBG pCO2 VBG pO2 VBG HCO3 VBG Total CO2 VBG O2 Saturation VBG Base Excess FiO2 % Sodium Potassium Chloride Carbon Dioxide BUN Creatinine Estimated GFR BUN/Creatinine Ratio Glucose Lactate 4.3 H* 4.1 H* Calcium Magnesium Total Bilirubin AST ALT Alkaline Phosphatase Troponin I NT-Pro-B Natriuret Pep Total Protein Albumin Globulin Albumin/Globulin Ratio Lipase Procalcitonin Urine RBC None seen Urine WBC None seen Ur Squamous Epith Cells 0-1 /hpf Urine Bacteria None seen Hyaline Casts 0-1/lpf Urine Mucus 1+ H Vol Urine Centrifuged 10ml (spun) SARS-CoV-2 (PCR) Influenza A (RT-PCR) Influenza B (RT-PCR) RSV (PCR) 09/21/25 07:45 WBC 13.8 H RBC 4.78 Hgb 14.3 Hct 41.6 MCV 87.2 MCH 30.0 MCHC 34.4 RDW 13.1 Plt Count 263 Neut % (Auto) 94.3 H Lymph % (Auto) 4.7 L [place] % (Auto) 0.9 L Eos % (Auto) 0.0 L Baso % (Auto) 0.1 Neut # (Auto) 05890 H Lymph # (Auto) 700 L [place] # (Auto) 100 Eos # (Auto) 0 Baso # (Auto) 0 VBG pH VBG pCO2 VBG pO2 VBG HCO3 VBG Total CO2 VBG O2 Saturation VBG Base Excess FiO2 % Sodium 137 Potassium 4.0 Chloride 106 Carbon Dioxide 20 L BUN 13 Creatinine 0.70 Estimated GFR > 60 BUN/Creatinine Ratio 18.6 Glucose 159 H Lactate 2.2 H Calcium 9.1 Magnesium Total Bilirubin AST ALT Alkaline Phosphatase Troponin I NT-Pro-B Natriuret Pep Total Protein Albumin Globulin Albumin/Globulin Ratio Lipase Procalcitonin Urine RBC Urine WBC Ur Squamous Epith Cells Urine Bacteria Hyaline Casts Urine Mucus Vol Urine Centrifuged SARS-CoV-2 (PCR) Influenza A (RT-PCR) Influenza B (RT-PCR) RSV (PCR) Assessment & Plan Time-Based Coding :: 35 min spent with patient and on the chart (including review of chart, obtaining history, exam, reviewing outside data, placing orders, documenting exam and treatment plan, and counseling patient) on 09/21. Quality MIPS - Admit I confirm the patient?s Advance Care Plan is present, Code status is documented, Surrogate decision maker is in patient?s record [If Yes, STOP here]: Yes MIPS - Meds 'Current medications' to include all prescriptions, [id number] products, herbals, cannabis/cannabidiol products, and vitamin/mineral/dietary (nutritional) supplements. I have utilized all available resources to obtain, update, or review the patient?s current medications. [If Yes, STOP here]: Yes
[2025-09-21 09:29] LABS: Reflexed Lactate in 2 Hours Y
[2025-09-21 10:01] LABS: Lactate 2HR (Lactic Acid Rflx) 1.5 mmol/L (0.7-2.1)
--- NOTE | 2025-09-21 10:23 | DI.RAD.S_ITS ---
PROCEDURE: XR CHEST 1V INDICATIONS: Dyspnea TECHNIQUE: One view of the chest was acquired. COMPARISON: [facility], CR, XR CHEST 1V, 09/20/2025, 21:35. FINDINGS: Surgical changes and devices: Macro EKG Lungs and pleura: Lungs are clear. No pleural effusions or pneumothorax. Mediastinum: Mediastinal contours appear normal. Heart size is normal. Bones and chest wall: No suspicious bony lesions. Overlying soft tissues appear unremarkable. IMPRESSION: No acute cardiopulmonary abnormality is seen. Dictated by: Alis Edwards M.D. on 09/21/2025 at 10:54 Approved by: Alis Edwards M.D. on 09/21/2025 at 10:55
--- NOTE | 2025-09-21 13:48 | PC.NURSE ---
Patient states they take Semaglutide, unable to state exact frequency and dosage at this time.
[2025-09-21] MEDS: ACETAMINOPHEN 325 MG TABLET 650 MG PO (14:04)
[2025-09-21] MEDS: AZITHROMYCIN 250 MG TABLET 500 MG PO (20:57)
[2025-09-22] VITALS (8 sets, daily range): BP systolic 107–141; BP diastolic 62–83; PULSE 64–129; RESP 16–22; TEMP 36.6–36.9; O2SAT 94–100
[2025-09-22] MEDS: methylPREDNISolone succ 125 MG/2 ML VIAL IV ×2 (00:42→06:57)
[2025-09-22 01:08] LABS: Clostridium difficile toxin AB Not Detected (Not Detect); Enteroaggregative E.coli Not Detected (Not Detect); Enteropathogenic E.coli Not Detected (Not Detect); Enterotoxigenic E.coli It/st Not Detected (Not Detect); Plesiomonsa shigelloides Not Detected (Not Detect); Shiga-like toxin-prod E.coli Not Detected (Not Detect)
[2025-09-22 05:13] LABS: Add Manual Diff / Slide Review NO; Hematocrit 42.4 % (41-53); Hemoglobin 14.6 g/dL (13.5-17.5); Lymphocytes Absolute Auto 1000 /uL (1100-4500); Mean Corpuscular HGB Conc 34.3 % (30-36); Mean Corpuscular Hemoglobin 30.0 PG (26-34); Mean Corpuscular Volume 87.4 fL (80-100); Platelet Count 293 X10^3/uL (150-400)
[2025-09-22 05:26] LABS: Blood Urea Nitrogen 19 mg/dL (9-20); Calcium 9.1 mg/dL (8.4-10.2); Carbon Dioxide 25 mmol/L (22-32); Chloride 104 mmol/L (98-107); Estimated Glomerular Filt Rate > 60 mL/min (>60); Glucose 147 mg/dL (70-99); HEMOLYSIS < 15 (0-50); Potassium 3.8 mmol/L (3.4-5.1); Sodium 138 mmol/L (137-145)
[2025-09-22] MEDS: PANTOPRAZOLE DR 20 MG TABLET PO (05:56)
--- NOTE | 2025-09-22 08:11 | P.DS_ITS ---
History of Present Illness History of Present Illness Date Patient Seen: 09/22/25 Chief complaint: SOB, asthma Discharge Providers Provider Date of admission: 09/20/25 23:55 Discharge provider: Geo Martinez MD Summary Hospital Course Hospital Course: The pt is a 30 yo who presents to the ER with severe SOB and wheezing that [place]. He states that he only uses Albuterol for a rescue inhaler but does admit that he takes it several times a day. There has been no recent infections, URI, fevers, chills, V/N other than 2 weeks ago he was seen in the ER for gastroenteritis. Steven was on allergy shots which improved his asthma symptoms greatly while living in [place] but over the past 4 months since moving to [place] he has not been on allergy shots, not seen any providers and only takes albuterol . ED: Imaging indicated pneumomediastinum and colitis. S: He was feeling better, still on oxygen and still somewhat short of breath. He does have pleuritic chest pain. He was abdominal tenderness in his having intermittent diarrhea for the past several weeks. No blood or mucus. O: NAD, alert and oriented, fluent speech, calm. Normocephalic skull, EOMI, anicteric sclera, symmetric pupils. Oropharynx unremarkable, no droop. Neck supple, midline trachea, no adenopathy. Lungs clear, normal rate and effort. Minimal wheezing. Diminished breath sounds globally. Heart regular, no murmur gallop or rub. Abdomen is soft, non distended and mildly tender. Extremities are free of edema. Skin is free of rash or lesions. Joints are not swollen or deformed. Judgment appears to be normal. IMAGING: A/P: 1. Asthma exacerbation, improving. 2. Pneumomediastinum, stable. 3. Colitis, active. 4. Leukocytosis, improving. 5. Lactic acidosis, improving. PLAN: -surgical review imaging with regard to pneumomediastinum and colitis and make recommendations. -continue to treat asthma with steroids and bronchodilators. -stool PCR and monitor abdominal pain and white count. -IV fluids and trend lactic acidosis. Exam Vital Signs (past 8 hours): - 09/22/25 04:19 Temperature 98.2 F Pulse Rate 120 H Respiratory Rate 16 Blood Pressure 130/75 Pulse Oximetry 94 Fraction of Inspired Oxygen 30 SaO2/FiO2 Ratio 196 Oxygen Delivery Method Room Air Oxygen Flow Rate 0 Objective Labs 09/22/25 04:40 09/22/25 04:40 Labs: Laboratory Results - last 24 hr 09/21/25 09/21/25 09/21/25 07:45 09:43 20:55 WBC RBC Hgb Hct MCV MCH MCHC RDW Plt Count Neut % (Auto) Lymph % (Auto) [place] % (Auto) Eos % (Auto) Baso % (Auto) Neut # (Auto) Lymph # (Auto) [place] # (Auto) Eos # (Auto) Baso # (Auto) Sodium 137 Potassium 4.0 Chloride 106 Carbon Dioxide 20 L BUN 13 Creatinine 0.70 Estimated GFR > 60 BUN/Creatinine Ratio 18.6 Glucose 159 H Lactate 1.5 Calcium 9.1 Stl C. cayetanensis PCR Not detected Stool Rotavirus (PCR) Not detected Stool Adenovirus (PCR) Not detected Stool Astrovirus (PCR) Not detected Stool Cryptosporidium PCR Not detected Stl E.coli Shiga Tox PCR Not detected St Sh/Enteroin Ecoli PCR Not detected Stl Enterotoxigenic E PCR Not detected Stool EPEC (PCR) Not detected Stl E. histolytica PCR Not detected Stool Giardia Lamblia PCR Not detected Stool Sapovirus (PCR) Not detected Stl P. shigelloides PCR Not detected St Y.enterocolitica PCR Not detected Stool Vibrio (PCR) Not detected Stl Vibrio cholerae PCR Not detected Stl Enteroaggr Ecoli PCR Not detected Stl Norovirus GI/GII PCR Not detected Campylobacter (PCR) Not detected C. difficile Tox (PCR) Not detected Salmonella (PCR) Not detected 09/22/25 04:40 WBC 23.6 H D RBC 4.86 Hgb 14.6 Hct 42.4 MCV 87.4 MCH 30.0 MCHC 34.3 RDW 13.5 Plt Count 293 Neut % (Auto) 92.9 H Lymph % (Auto) 4.1 L [place] % (Auto) 3.0 Eos % (Auto) 0.0 L Baso % (Auto) 0.0 Neut # (Auto) 42119 H Lymph # (Auto) 1000 L [place] # (Auto) 700 Eos # (Auto) 0 Baso # (Auto) 0 Sodium 138 Potassium 3.8 Chloride 104 Carbon Dioxide 25 BUN 19 Creatinine 0.76 Estimated GFR > 60 BUN/Creatinine Ratio 25.0 H Glucose 147 H Lactate Calcium 9.1 Stl C. cayetanensis PCR Stool Rotavirus (PCR) Stool Adenovirus (PCR) Stool Astrovirus (PCR) Stool Cryptosporidium PCR Stl E.coli Shiga Tox PCR St Sh/Enteroin Ecoli PCR Stl Enterotoxigenic E PCR Stool EPEC (PCR) Stl E. histolytica PCR Stool Giardia Lamblia PCR Stool Sapovirus (PCR) Stl P. shigelloides PCR St Y.enterocolitica PCR Stool Vibrio (PCR) Stl Vibrio cholerae PCR Stl Enteroaggr Ecoli PCR Stl Norovirus GI/GII PCR Campylobacter (PCR) C. difficile Tox (PCR) Salmonella (PCR) [facility] Social History household members: spouse Smoking Status: Never smoker Discharge Plan Discharge orders & Medications Prescriptions: No Action albuterol sulfate 90 mcg/actuation HFA aerosol inhaler 1 inh inhalation Q6H PRN (Reason: shortness of breath or wheezing) lisdexamfetamine 50 mg capsule 50 mg PO DAILY
[2025-09-22] MEDS: MONTELUKAST 10 MG TABLET PO (08:33)
[2025-09-22] MEDS: ALBUTEROL/IPRATROPIUM 3 ML AMPUL INH ×3 (09:05→18:00)
--- NOTE | 2025-09-22 12:11 | DI.RAD.S_ITS ---
PROCEDURE: XR CHEST 1V INDICATIONS: Asthma and Leukocytosis TECHNIQUE: One view of the chest was acquired. COMPARISON: [facility], CR, XR CHEST 1V, 09/21/2025, 10:18. [facility], CR, XR CHEST 1V, 09/20/2025, 21:35. FINDINGS: Surgical changes and devices: None. Lungs and pleura: Lungs are clear. No pleural effusions or pneumothorax. Mediastinum: Mediastinal contours appear normal. Heart size is normal. Bones and chest wall: No suspicious bony lesions. Overlying soft tissues appear unremarkable. IMPRESSION: No acute cardiopulmonary abnormality is seen. Dictated by: Karl Vega M.D. on 09/22/2025 at 12:47 Approved by: Karl Vega M.D. on 09/22/2025 at 12:48
[2025-09-22 12:46] LABS: Hematocrit 43.7 % (41-53); Hemoglobin 15.3 g/dL (13.5-17.5); Mean Corpuscular HGB Conc 34.9 % (30-36); Mean Corpuscular Hemoglobin 30.4 PG (26-34); Mean Corpuscular Volume 87.2 fL (80-100); Platelet Count 294 X10^3/uL (150-400)
[2025-09-22 12:50] LABS: Add Manual Diff / Slide Review YES
[2025-09-22] MEDS: methylPREDNISolone succ 125 MG/2 ML VIAL 60 MG IV ×2 (12:51→19:42)
[2025-09-22 13:03] LABS: Lymphocytes Percent Manual 2.0 % (25-45); Monocytes Percent Manual 5.0 % (2-11); Neutrophils Absolute Manual 23529 /uL (3000-5900); Segmented Neutrophils Percent 93.0 % (38-70); Total Cells Counted 100
[2025-09-22 13:04] LABS: RBC Morphology Normal Morphology
[2025-09-22 13:08] LABS: Acinetobacter calcoa-baumannii Not Detected (Not Detect); Bacteroides fragilis Not Detected (Not Detect); Candida auris Not Detected (Not Detect); Candida glabrata Not Detected (Not Detect); Cryptococcus neoformans/gatti Not Detected (Not Detect); Enterobacterales Not Detected (Not Detect); Enterococcus faecalis Not Detected (Not Detect); Enterococcus faecium Not Detected (Not Detect); Klebsiella aerogenes Not Detected (Not Detect); Proteus species Not Detected (Not Detect); Serratia marcescens Not Detected (Not Detect); Staphylococcus epidermidis Not Detected (Not Detect); Staphylococcus lugdunensis Not Detected (Not Detect); Staphylococcus species Not Detected (Not Detect); Stenotrophomonas maltophilia Not Detected (Not Detect); Streptococcus agalactiae (Gr B Not Detected (Not Detect); Streptococcus pneumonia Not Detected (Not Detect); Streptococcus pyogenes (Gr A) Not Detected (Not Detect); Streptococcus species Not Detected (Not Detect)
--- NOTE | 2025-09-22 13:25 | P.PN_ITS ---
Subjective Subjective Date Patient Seen: 09/22/25 Interval history: The pt is a 30 yo who presents to the ER with severe SOB and wheezing [place]. He states that he only uses Albuterol for a rescue inhaler but does admit that he takes it several times a day. There has been no recent infections, URI, fevers, chills, V/N other than 2 weeks ago he was seen in the ER for gastroenteritis. Steven was on allergy shots which improved his asthma symptoms greatly while living in [place] but over the past 4 months since moving to [place] he has not been on allergy shots, not seen any providers and only takes albuterol . ED: CT imaging indicated pneumomediastinum and colitis. 09/22: When I initially saw him this morning he said he was breathing at least 70% better and was hopeful of going home. The blood cultures came back 11/30 with Gram-positive cocci so instead of discharging him I repeated his chest x-ray and CBC, in the context of the very high white blood count of 23.6 this morning (he has been getting 125 mg of Solu-Medrol every 6 hours also). The chest x-ray is normal but the repeat white blood count is now up to 25.3. On the 2nd visit he was much more emphatic about his abdominal pain which comes on in spasms and is in the upper abdomen. The lipase and CT on admission did not show any Ozempic related pancreatitis but that will be repeated today. The pancolitis is most concerning. Zosyn will be started and if a follow-up CT does not show improvements with the steroids that he has been getting then we will talk to General surgery about colonoscopy versus referral to another hospital with GI. It is certainly possible that the pancolitis with related upper abdominal pain flared his asthma. O: NAD, alert and oriented, fluent speech, calm. Normocephalic Neck supple, midline trachea Lungs clear, normal rate and effort. Minimal wheezing. Diminished breath sounds globally. Heart regular, no murmur gallop or rub. Abdomen is soft, non distended and mildly tender. Extremities are free of edema. Skin is free of rash or lesions. Joints are not swollen or deformed. Judgment appears to be normal. A/P: 1. Asthma exacerbation, improving. 2. Pneumomediastinum, stable. 3. Pancolitis, active. 4. Leukocytosis, worsening 5. Lactic acidosis, improving. PLAN: -surgical review imaging with regard to pneumomediastinum and had barium esophagram showing no tears -continue to treat asthma with steroids and bronchodilators. Decrease Solumedrol to 60 mg q 6 h. -stool PCR negative -repeat lipase and abdominal CT. -consult General surgery versus referral to hospital with GI if pancolitis shows progression. -change antibiotics to Zosyn. -IV fluids Exam Vital Signs (past 8 hours): - 09/22/25 07:00 09/22/25 09:05 09/22/25 09:05 Temperature 98.2 F Pulse Rate 64 112 H Respiratory Rate 16 Blood Pressure 125/79 Pulse Oximetry 100 98 Oxygen Delivery Method Room Air Room Air Oxygen Flow Rate 0 09/22/25 12:40 Temperature Pulse Rate 128 H Respiratory Rate 22 Blood Pressure Pulse Oximetry 96 Oxygen Delivery Method Room Air Oxygen Flow Rate Fraction of Inspired Oxygen 30 SaO2/FiO2 Ratio 196 Oxygen Delivery Method Room Air Oxygen Flow Rate 0 Objective Labs 09/22/25 12:33 09/22/25 04:40 Labs: Laboratory Results - last 24 hr 09/20/25 09/21/25 09/22/25 20:50 20:55 04:40 WBC 23.6 H D RBC 4.86 Hgb 14.6 Hct 42.4 MCV 87.4 MCH 30.0 MCHC 34.3 RDW 13.5 Plt Count 293 Neut % (Auto) 92.9 H Lymph % (Auto) 4.1 L [place] % (Auto) 3.0 Eos % (Auto) 0.0 L Baso % (Auto) 0.0 Neut # (Auto) 73099 H Lymph # (Auto) 1000 L [place] # (Auto) 700 Eos # (Auto) 0 Baso # (Auto) 0 Total Counted Seg Neutrophils % Lymphocytes % (Manual) Monocytes % (Manual) Neutrophils # (Manual) RBC Morphology Sodium 138 Potassium 3.8 Chloride 104 Carbon Dioxide 25 BUN 19 Creatinine 0.76 Estimated GFR > 60 BUN/Creatinine Ratio 25.0 H Glucose 147 H Calcium 9.1 Stl C. cayetanensis PCR Not detected Stool Rotavirus (PCR) Not detected Stool Adenovirus (PCR) Not detected Stool Astrovirus (PCR) Not detected Stool Cryptosporidium PCR Not detected Stl E.coli Shiga Tox PCR Not detected St Sh/Enteroin Ecoli PCR Not detected Stl Enterotoxigenic E PCR Not detected Stool EPEC (PCR) Not detected Stl E. histolytica PCR Not detected Stool Giardia Lamblia PCR Not detected Stool Sapovirus (PCR) Not detected Stl P. shigelloides PCR Not detected St Y.enterocolitica PCR Not detected Stool Vibrio (PCR) Not detected Stl Vibrio cholerae PCR Not detected Stl Enteroaggr Ecoli PCR Not detected Stl Norovirus GI/GII PCR Not detected A.calcoaceticus-baumannii cmplx PCR Not detected Bacteroides fragilis Not detected Campylobacter (PCR) Not detected Alma albicans (PCR) Not detected Alma auris (PCR) Not detected C. glabrata (PCR) Not detected C. krusei (PCR) Not detected C. parapsilosis (PCR) Not detected C. tropicalis (PCR) Not detected C. difficile Tox (PCR) Not detected C. neoform/gattii (PCR) Not detected Enterobacterales (PCR) Not detected E. cloacae complex PCR Not detected Enterococc faecalis PCR Not detected Enterococc faecium PCR Not detected E. coli (PCR) Not detected H. influenzae (PCR) Not detected Klebsiella aerogenes (PCR) Not detected Klebsiella oxytoca PCR Not detected Klebsiella pneumoniae Not detected List. monocytogenes PCR Not detected N. meningitidis (PCR) Not detected Proteus species (PCR) Not detected Salmonella (PCR) Not detected Salmonella spp. (PCR) Not detected Serratia marcescens PCR Not detected Staphylococcus sp PCR Not detected Staph aureus (PCR) Not detected mecA/C & MREJ Resist Gene Not applicable mecA/C-Methicil Resis Gene Not applicable mcr-1 Colistin Res Gene PCR Not applicable Staph epidermidis (PCR) Not detected Staph lugdunensis PCR Not detected S. maltophilia (PCR) Not detected Streptococcus sp PCR Not detected Group A Strep (PCR) Not detected Strep agalactiae (PCR) Not detected Strep pneumoniae (PCR) Not detected P. aeruginosa (PCR) Not detected Funmilayo/B-Vanco Res Genes Not applicable blaIMP Car res Gene PCR Not applicable KPC-Carbap Res Gene PCR Not applicable blaNDM Car Res Gene PCR Not applicable OXA-48 Carbapenem Resis Gene (PCR) Not applicable blaVIM Car Res Gene PCR Not applicable CTX-M Gene Resistance (PCR) Not applicable 09/22/25 12:33 WBC 25.3 H RBC 5.02 Hgb 15.3 Hct 43.7 MCV 87.2 MCH 30.4 MCHC 34.9 RDW 13.2 Plt Count 294 Neut % (Auto) Not Reportable Lymph % (Auto) Not Reportable [place] % (Auto) Not Reportable Eos % (Auto) Not Reportable Baso % (Auto) Not Reportable Neut # (Auto) Lymph # (Auto) Not Reportable [place] # (Auto) Not Reportable Eos # (Auto) Baso # (Auto) Not Reportable Total Counted 100 Seg Neutrophils % 93.0 H Lymphocytes % (Manual) 2.0 L Monocytes % (Manual) 5.0 Neutrophils # (Manual) 65306 H RBC Morphology Normal morphology Sodium Potassium Chloride Carbon Dioxide BUN Creatinine Estimated GFR BUN/Creatinine Ratio Glucose Calcium Stl C. cayetanensis PCR Stool Rotavirus (PCR) Stool Adenovirus (PCR) Stool Astrovirus (PCR) Stool Cryptosporidium PCR Stl E.coli Shiga Tox PCR St Sh/Enteroin Ecoli PCR Stl Enterotoxigenic E PCR Stool EPEC (PCR) Stl E. histolytica PCR Stool Giardia Lamblia PCR Stool Sapovirus (PCR) Stl P. shigelloides PCR St Y.enterocolitica PCR Stool Vibrio (PCR) Stl Vibrio cholerae PCR Stl Enteroaggr Ecoli PCR Stl Norovirus GI/GII PCR A.calcoaceticus-baumannii cmplx PCR Bacteroides fragilis Campylobacter (PCR) Alma albicans (PCR) Alma auris (PCR) C. glabrata (PCR) C. krusei (PCR) C. parapsilosis (PCR) C. tropicalis (PCR) C. difficile Tox (PCR) C. neoform/gattii (PCR) Enterobacterales (PCR) E. cloacae complex PCR Enterococc faecalis PCR Enterococc faecium PCR E. coli (PCR) H. influenzae (PCR) Klebsiella aerogenes (PCR) Klebsiella oxytoca PCR Klebsiella pneumoniae List. monocytogenes PCR N. meningitidis (PCR) Proteus species (PCR) Salmonella (PCR) Salmonella spp. (PCR) Serratia marcescens PCR Staphylococcus sp PCR Staph aureus (PCR) mecA/C & MREJ Resist Gene mecA/C-Methicil Resis Gene mcr-1 Colistin Res Gene PCR Staph epidermidis (PCR) Staph lugdunensis PCR S. maltophilia (PCR) Streptococcus sp PCR Group A Strep (PCR) Strep agalactiae (PCR) Strep pneumoniae (PCR) P. aeruginosa (PCR) Funmilayo/B-Vanco Res Genes blaIMP Car res Gene PCR KPC-Carbap Res Gene PCR blaNDM Car Res Gene PCR OXA-48 Carbapenem Resis Gene (PCR) blaVIM Car Res Gene PCR CTX-M Gene Resistance (PCR) PFSH Social History household members: spouse Smoking Status: Never smoker Assessment & Plan Time-Based Coding :: [TOTAL MINUTES] spent with patient and on the chart (including review of chart, obtaining history, exam, reviewing outside data, placing orders, documenting exam and treatment plan, and counseling patient) on [DATE].
[2025-09-22 13:37] LABS: Lipase 40 U/L (23-300)
[2025-09-22] MEDS: PIPERACILLIN/TAZO 4.5 GM in SODIUM CHLORIDE 0.9% 100 ML IV ×2 (14:15→20:46)
--- NOTE | 2025-09-22 14:16 | DI.CT.S_ITS ---
PROCEDURE: CT ABDOMEN PELVIS W CON INDICATIONS: colitis, pancreatitis TECHNIQUE: Oral contrast was given in this patient. After the administration of intravenous contrast, axial sections acquired from the lung bases to the pubic symphysis. Coronal and sagittal reformats were performed. For radiation dose reduction, the following was used: automated exposure control, adjustment of mA and/or kV according to patient size. COMPARISON: [facility], CT, CT ABDOMEN PELVIS W CON, 09/20/2025, 21:56. FINDINGS: Image quality: Diagnostic. Lower Chest: No significant findings. ABDOMEN: Liver: No solid mass. Diffuse fatty liver infiltration is noted. Gallbladder: No radiopaque gallstones or wall thickening. Biliary ducts: No biliary dilation. Pancreas: In this patient with this given history, scrutiny is given to the pancreas. No significant peripancreatic inflammatory change can be seen. No pancreatic ductal dilatation is seen. Spleen: Size is within normal limits. Incidental note is made of an accessory splenule along the hilum of the primary spleen. Adrenal Glands: No adrenal nodules. Kidneys and Ureters: No hydronephrosis. No solid mass. No complex renal cystic lesion which requires follow up. Stomach and Bowel: The colon demonstrates an improved appearance compared to the prior examination, with decreased wall thickening. There is moderate wall thickening seen within the distal sigmoid and the rectum. Mild prominence of fluid-filled small bowel can be seen within the left upper quadrant of the abdomen, with loops measuring up to 3.2 cm. The distal small bowel loops are decompressed. A normal appendix is noted. Peritoneum: No abnormal intraperitoneal fluid. No free air. Ventral Wall: No significant ventral hernia. Abdominal Nodes: No retroperitoneal or mesenteric adenopathy by size criteria. Vessels: Aorta and inferior vena cava are normal in size. PELVIS: Pelvic Organs: Unremarkable. Bladder: No bladder wall thickening, accounting for underdistention. Pelvic Nodes: No enlarged lymph nodes. Miscellaneous: No inguinal hernias are seen. Bones: No aggressive osseous abnormality. Focal L5-S1 degenerative change is seen. IMPRESSION: Improved appearance of the colon, now only significant wall thickening distally. No significant pancreatic abnormality is seen. Mild prominence of proximal small bowel can be seen, likely related to ileus. Partial or early small bowel obstruction is possible, yet considered to be less likely. Additional findings: Fatty liver infiltration Normal appendix Focal L5-S1 degenerative change Dictated by: Abrahamvalentin Quintero M.D. on 09/22/2025 at 14:27 Approved by: Abraham Quintero M.D. on 09/22/2025 at 14:30
--- NOTE | 2025-09-22 16:18 | PM.CN.IH.1 ---
History of Present Illness Consult details Date Patient Seen: 09/22/25 Time Patient Seen: 16:19 Chief complaint: SOB, asthma Narrative: Jose Antonio is a 30-year-old man who was admitted for an acute asthma exacerbation. He also had experienced diarrhea for about 2 weeks. He was seen in the emergency room at [facility] [address] scan was normal and it was felt to have a GI bug. His first CT scan here performed on September 20 showed colitis and a repeat scan today showed improvement but still some mild thickening in the distal colon. He denies significant abdominal pain. He denies rectal bleeding. Meds Home Medications and Allergies Home Medications ?Medication ?Instructions ?Recorded ?Confirmed ?Type albuterol sulfate 90 mcg/actuation 1 inh inhalation Q6H PRN shortness 09/21/25 09/21/25 History aerosol inhaler of breath or wheezing lisdexamfetamine 50 mg capsule 50 mg PO DAILY 09/21/25 09/21/25 History Allergies Allergy/AdvReac Type Severity Reaction Status Date / Time No Known Drug Allergies Allergy Verified 09/20/25 20:42 Exam Vital Signs (past 8 hours): - 09/22/25 09:05 09/22/25 09:05 09/22/25 12:40 Temperature 98.2 F Pulse Rate 64 112 H 128 H Respiratory Rate 16 22 Blood Pressure 125/79 Pulse Oximetry 100 98 96 Oxygen Delivery Method Room Air Room Air Oxygen Flow Rate 0 09/22/25 14:02 Temperature 98.5 F Pulse Rate 129 H Respiratory Rate 18 Blood Pressure 130/77 Pulse Oximetry 99 Oxygen Delivery Method Oxygen Flow Rate 0 Fraction of Inspired Oxygen 30 SaO2/FiO2 Ratio 196 Oxygen Delivery Method Room Air Oxygen Flow Rate 0 Narrative Exam Narrative: Abdomen is soft, nontender Objective Labs 09/22/25 12:33 09/22/25 04:40 Labs: Laboratory Results - last 24 hr 09/20/25 09/21/25 09/22/25 20:50 20:55 04:40 WBC 23.6 H D RBC 4.86 Hgb 14.6 Hct 42.4 MCV 87.4 MCH 30.0 MCHC 34.3 RDW 13.5 Plt Count 293 Neut % (Auto) 92.9 H Lymph % (Auto) 4.1 L [place] % (Auto) 3.0 Eos % (Auto) 0.0 L Baso % (Auto) 0.0 Neut # (Auto) 97638 H Lymph # (Auto) 1000 L [place] # (Auto) 700 Eos # (Auto) 0 Baso # (Auto) 0 Total Counted Seg Neutrophils % Lymphocytes % (Manual) Monocytes % (Manual) Neutrophils # (Manual) RBC Morphology Sodium 138 Potassium 3.8 Chloride 104 Carbon Dioxide 25 BUN 19 Creatinine 0.76 Estimated GFR > 60 BUN/Creatinine Ratio 25.0 H Glucose 147 H Calcium 9.1 Lipase 40 Stl C. cayetanensis PCR Not detected Stool Rotavirus (PCR) Not detected Stool Adenovirus (PCR) Not detected Stool Astrovirus (PCR) Not detected Stool Cryptosporidium PCR Not detected Stl E.coli Shiga Tox PCR Not detected St Sh/Enteroin Ecoli PCR Not detected Stl Enterotoxigenic E PCR Not detected Stool EPEC (PCR) Not detected Stl E. histolytica PCR Not detected Stool Giardia Lamblia PCR Not detected Stool Sapovirus (PCR) Not detected Stl P. shigelloides PCR Not detected St Y.enterocolitica PCR Not detected Stool Vibrio (PCR) Not detected Stl Vibrio cholerae PCR Not detected Stl Enteroaggr Ecoli PCR Not detected Stl Norovirus GI/GII PCR Not detected A.calcoaceticus-baumannii cmplx PCR Not detected Bacteroides fragilis Not detected Campylobacter (PCR) Not detected Alma albicans (PCR) Not detected Alma auris (PCR) Not detected C. glabrata (PCR) Not detected C. krusei (PCR) Not detected C. parapsilosis (PCR) Not detected C. tropicalis (PCR) Not detected C. difficile Tox (PCR) Not detected C. neoform/gattii (PCR) Not detected Enterobacterales (PCR) Not detected E. cloacae complex PCR Not detected Enterococc faecalis PCR Not detected Enterococc faecium PCR Not detected E. coli (PCR) Not detected H. influenzae (PCR) Not detected Klebsiella aerogenes (PCR) Not detected Klebsiella oxytoca PCR Not detected Klebsiella pneumoniae Not detected List. monocytogenes PCR Not detected N. meningitidis (PCR) Not detected Proteus species (PCR) Not detected Salmonella (PCR) Not detected Salmonella spp. (PCR) Not detected Serratia marcescens PCR Not detected Staphylococcus sp PCR Not detected Staph aureus (PCR) Not detected mecA/C & MREJ Resist Gene Not applicable mecA/C-Methicil Resis Gene Not applicable mcr-1 Colistin Res Gene PCR Not applicable Staph epidermidis (PCR) Not detected Staph lugdunensis PCR Not detected S. maltophilia (PCR) Not detected Streptococcus sp PCR Not detected Group A Strep (PCR) Not detected Strep agalactiae (PCR) Not detected Strep pneumoniae (PCR) Not detected P. aeruginosa (PCR) Not detected Funmilayo/B-Vanco Res Genes Not applicable blaIMP Car res Gene PCR Not applicable KPC-Carbap Res Gene PCR Not applicable blaNDM Car Res Gene PCR Not applicable OXA-48 Carbapenem Resis Gene (PCR) Not applicable blaVIM Car Res Gene PCR Not applicable CTX-M Gene Resistance (PCR) Not applicable 09/22/25 12:33 WBC 25.3 H RBC 5.02 Hgb 15.3 Hct 43.7 MCV 87.2 MCH 30.4 MCHC 34.9 RDW 13.2 Plt Count 294 Neut % (Auto) Not Reportable Lymph % (Auto) Not Reportable [place] % (Auto) Not Reportable Eos % (Auto) Not Reportable Baso % (Auto) Not Reportable Neut # (Auto) Lymph # (Auto) Not Reportable [place] # (Auto) Not Reportable Eos # (Auto) Baso # (Auto) Not Reportable Total Counted 100 Seg Neutrophils % 93.0 H Lymphocytes % (Manual) 2.0 L Monocytes % (Manual) 5.0 Neutrophils # (Manual) 42600 H RBC Morphology Normal morphology Sodium Potassium Chloride Carbon Dioxide BUN Creatinine Estimated GFR BUN/Creatinine Ratio Glucose Calcium Lipase Stl C. cayetanensis PCR Stool Rotavirus (PCR) Stool Adenovirus (PCR) Stool Astrovirus (PCR) Stool Cryptosporidium PCR Stl E.coli Shiga Tox PCR St Sh/Enteroin Ecoli PCR Stl Enterotoxigenic E PCR Stool EPEC (PCR) Stl E. histolytica PCR Stool Giardia Lamblia PCR Stool Sapovirus (PCR) Stl P. shigelloides PCR St Y.enterocolitica PCR Stool Vibrio (PCR) Stl Vibrio cholerae PCR Stl Enteroaggr Ecoli PCR Stl Norovirus GI/GII PCR A.calcoaceticus-baumannii cmplx PCR Bacteroides fragilis Campylobacter (PCR) Alma albicans (PCR) Alma auris (PCR) C. glabrata (PCR) C. krusei (PCR) C. parapsilosis (PCR) C. tropicalis (PCR) C. difficile Tox (PCR) C. neoform/gattii (PCR) Enterobacterales (PCR) E. cloacae complex PCR Enterococc faecalis PCR Enterococc faecium PCR E. coli (PCR) H. influenzae (PCR) Klebsiella aerogenes (PCR) Klebsiella oxytoca PCR Klebsiella pneumoniae List. monocytogenes PCR N. meningitidis (PCR) Proteus species (PCR) Salmonella (PCR) Salmonella spp. (PCR) Serratia marcescens PCR Staphylococcus sp PCR Staph aureus (PCR) mecA/C & MREJ Resist Gene mecA/C-Methicil Resis Gene mcr-1 Colistin Res Gene PCR Staph epidermidis (PCR) Staph lugdunensis PCR S. maltophilia (PCR) Streptococcus sp PCR Group A Strep (PCR) Strep agalactiae (PCR) Strep pneumoniae (PCR) P. aeruginosa (PCR) [place]o/B-Vanco Res Genes blaIMP Car res Gene PCR KPC-Carbap Res Gene PCR blaNDM Car Res Gene PCR OXA-48 Carbapenem Resis Gene (PCR) blaVIM Car Res Gene PCR CTX-M Gene Resistance (PCR) PFSH Social History household members: spouse Tobacco & Substance Use Smoking Status: Never smoker Assessment & Plan Assessment and plan (1) Pneumomediastinum: Status: Acute Plan I suspect a viral gastroenteritis is indeed the most likely cause for his gastrointestinal symptoms and in thickening of his colon on CT. If his symptoms do not resolve in another week or two he should consider having an EGD and colonoscopy to rule out inflammatory bowel disease or other conditions that might cause diarrhea. He can contact [facility] to arrange for an appointment with me or he could see one of the surgeons at [facility]. Time-Based Coding :: [TOTAL MINUTES] spent with patient and on the chart (including review of chart, obtaining history, exam, reviewing outside data, placing orders, documenting exam and treatment plan, and counseling patient) on [DATE]. PROFEE Charge Codes Inpatient or Observation consultation: [id number]
[2025-09-22] MEDS: ACETAMINOPHEN 325 MG TABLET 650 MG PO (17:35)
[2025-09-22] MEDS: SENNOSIDES 8.6 MG TABLET 17.2 MG PO (20:48)
[2025-09-23 02:00] VITALS: BP 140/73; PULSE 107; RESP 18; TEMP 36.6; O2SAT 95
[2025-09-23 05:07] LABS: Add Manual Diff / Slide Review NO; Hematocrit 42.1 % (41-53); Hemoglobin 14.5 g/dL (13.5-17.5); Lymphocytes Absolute Auto 900 /uL (1100-4500); Mean Corpuscular HGB Conc 34.5 % (30-36); Mean Corpuscular Hemoglobin 30.3 PG (26-34); Mean Corpuscular Volume 87.8 fL (80-100); Platelet Count 274 X10^3/uL (150-400)
[2025-09-23] MEDS: PIPERACILLIN/TAZO 4.5 GM in SODIUM CHLORIDE 0.9% 100 ML IV (05:40)
[2025-09-23] MEDS: methylPREDNISolone succ 125 MG/2 ML VIAL 60 MG IV ×2 (05:41)
[2025-09-23] MEDS: PANTOPRAZOLE DR 20 MG TABLET PO (05:42)
[2025-09-23] MEDS: IBUPROFEN 600 MG TABLET PO (05:44)
[2025-09-23] MEDS: ONDANSETRON 4 MG/2 ML INJ IV (05:45)
[2025-09-23] MEDS: ALBUTEROL/IPRATROPIUM 3 ML AMPUL INH (07:13)
[2025-09-23 07:14] VITALS: PULSE 101; O2SAT 96
--- NOTE | 2025-09-23 08:08 | P.DS_ITS ---
History of Present Illness History of Present Illness Date Patient Seen: 09/23/25 Chief complaint: SOB, asthma Narrative: The pt is a 30 yo who presents to the ER with severe SOB and wheezing that [place]. He states that he only uses Albuterol for a rescue inhaler but does admit that he takes it several times a day. There has been no recent infections, URI, fevers, chills, V/N other than 2 weeks ago he was seen in the ER for gastroenteritis. Steven was on allergy shots which improved his asthma symptoms greatly while living in [place] but over the past 4 months since moving to [place] he has not been on allergy shots, not seen any providers and only takes albuterol . Discharge Providers Provider Date of admission: 09/20/25 23:55 Discharge Date: 09/23/25 Discharge provider: Geo Martinez MD Summary Hospital Course Hospital Course: The pt is a 30 yo who presents to the ER with severe SOB and wheezing that [place]. He states that he only uses Albuterol for a rescue inhaler but does admit that he takes it several times a day. There has been no recent infections, URI, fevers, chills, V/N other than 2 weeks ago he was seen in the ER for gastroenteritis. Steven was on allergy shots which improved his asthma symptoms greatly while living in [place] but over the past 4 months since moving to [place] he has not been on allergy shots, not seen any providers and only takes albuterol . ED: CT imaging indicated pneumomediastinum and pancolitis. 09/22: When I initially saw him this morning he said he was breathing at least 70% better and was hopeful of going home. The blood cultures came back 11/30 with Gram-positive cocci so instead of discharging him I repeated his chest x-ray and CBC, in the context of the very high white blood count of 23.6 this morning (he has been getting 125 mg of Solu-Medrol every 6 hours also). The chest x-ray is normal but the repeat white blood count is now up to 25.3. On the 2nd visit he was much more emphatic about his abdominal pain which comes on in spasms and is in the upper abdomen. The lipase and CT on admission did not show any Ozempic related pancreatitis but that will be repeated today. The pancolitis is most concerning. Zosyn will be started and if a follow-up CT does not show improvements with the steroids that he has been getting then we will talk to General surgery about colonoscopy versus referral to another hospital with GI. It is certainly possible that the pancolitis with related upper abdominal pain flared his asthma. 09/23: Seen by General surgery yesterday after CT documented diminishing areas suspicious for colitis. The conclusion was that this was likely gastroenteritis related/caused. The white blood count has dropped down to 21.1 today. He says he is breathing better but still feels tight. He is still having frequent yellowish stools but the GI panel was negative. The 2nd blood culture remains negative. 1. Asthma exacerbation, mostly resolved 2. Pneumomediastinum, resolved 3. Pancolitis, mostly resolved 4. Leukocytosis, improved after Solu-Medrol dose was decreased. 5. Lactic acidosis, improving. Summary: General surgery reviewed his imaging in the context of the pneumomediastinum and pancolitis. No surgical issue was identified and no further interventions were indicated. Treatment of the asthma was given per routine. The Solu-Medrol dose was decreased and the white blood count started to come down. Follow up for colonoscopy is remaining on the workup panel and will be arranged closer to home by the patient if his diarrhea does not resolve soon. Status at Discharge Cognitive/behavioral status at discharge: at baseline, oriented Functional status at discharge: independent ambulation Overall status at discharge: patient is back to baseline Time Spent with Patient Time spent: Less than 30 minutes Exam Vital Signs (past 8 hours): - 09/23/25 02:00 09/23/25 07:14 Temperature 97.8 F Pulse Rate 107 H 101 H Respiratory Rate 18 Blood Pressure 140/73 Pulse Oximetry 95 96 Oxygen Delivery Method Room Air Oxygen Flow Rate 0 Fraction of Inspired Oxygen 30 SaO2/FiO2 Ratio 196 Oxygen Delivery Method Room Air Oxygen Flow Rate 0 Narrative Exam Narrative: Alert and oriented x3. Lungs are clear to auscultation bilaterally with decreased breath sounds. Heart is regular rate and rhythm without murmur. Extremities have no ankle edema. Objective Labs 09/23/25 04:45 09/22/25 04:40 Labs: Laboratory Results - last 24 hr 09/20/25 09/22/25 09/22/25 20:50 04:40 12:33 WBC 25.3 H RBC 5.02 Hgb 15.3 Hct 43.7 MCV 87.2 MCH 30.4 MCHC 34.9 RDW 13.2 Plt Count 294 Neut % (Auto) Not Reportable Lymph % (Auto) Not Reportable Barbour % (Auto) Not Reportable Eos % (Auto) Not Reportable Baso % (Auto) Not Reportable Neut # (Auto) Lymph # (Auto) Not Reportable Barbour # (Auto) Not Reportable Eos # (Auto) Baso # (Auto) Not Reportable Total Counted 100 Seg Neutrophils % 93.0 H Lymphocytes % (Manual) 2.0 L Monocytes % (Manual) 5.0 Neutrophils # (Manual) 72218 H RBC Morphology Normal morphology Lipase 40 A.calcoaceticus-baumannii cmplx PCR Not detected Bacteroides fragilis Not detected Alma albicans (PCR) Not detected Alma auris (PCR) Not detected C. glabrata (PCR) Not detected C. krusei (PCR) Not detected C. parapsilosis (PCR) Not detected C. tropicalis (PCR) Not detected C. neoform/gattii (PCR) Not detected Enterobacterales (PCR) Not detected E. cloacae complex PCR Not detected Enterococc faecalis PCR Not detected Enterococc faecium PCR Not detected E. coli (PCR) Not detected H. influenzae (PCR) Not detected Klebsiella aerogenes (PCR) Not detected Klebsiella oxytoca PCR Not detected Klebsiella pneumoniae Not detected List. monocytogenes PCR Not detected N. meningitidis (PCR) Not detected Proteus species (PCR) Not detected Salmonella spp. (PCR) Not detected Serratia marcescens PCR Not detected Staphylococcus sp PCR Not detected Staph aureus (PCR) Not detected mecA/C & MREJ Resist Gene Not applicable mecA/C-Methicil Resis Gene Not applicable mcr-1 Colistin Res Gene PCR Not applicable Staph epidermidis (PCR) Not detected Staph lugdunensis PCR Not detected S. maltophilia (PCR) Not detected Streptococcus sp PCR Not detected Group A Strep (PCR) Not detected Strep agalactiae (PCR) Not detected Strep pneumoniae (PCR) Not detected P. aeruginosa (PCR) Not detected Funmilayo/B-Vanco Res Genes Not applicable blaIMP Car res Gene PCR Not applicable KPC-Carbap Res Gene PCR Not applicable blaNDM Car Res Gene PCR Not applicable OXA-48 Carbapenem Resis Gene (PCR) Not applicable blaVIM Car Res Gene PCR Not applicable CTX-M Gene Resistance (PCR) Not applicable 09/23/25 04:45 WBC 21.1 H RBC 4.79 Hgb 14.5 Hct 42.1 MCV 87.8 MCH 30.3 MCHC 34.5 RDW 13.3 Plt Count 274 Neut % (Auto) 90.4 H Lymph % (Auto) 4.1 L Barbour % (Auto) 5.5 Eos % (Auto) 0.0 L Baso % (Auto) 0.0 Neut # (Auto) 81769 H Lymph # (Auto) 900 L Barbour # (Auto) 1200 H Eos # (Auto) 0 Baso # (Auto) 0 Total Counted Seg Neutrophils % Lymphocytes % (Manual) Monocytes % (Manual) Neutrophils # (Manual) RBC Morphology Lipase A.calcoaceticus-baumannii cmplx PCR Bacteroides fragilis Alma albicans (PCR) Alma auris (PCR) C. glabrata (PCR) C. krusei (PCR) C. parapsilosis (PCR) C. tropicalis (PCR) C. neoform/gattii (PCR) Enterobacterales (PCR) E. cloacae complex PCR Enterococc faecalis PCR Enterococc faecium PCR E. coli (PCR) H. influenzae (PCR) Klebsiella aerogenes (PCR) Klebsiella oxytoca PCR Klebsiella pneumoniae List. monocytogenes PCR N. meningitidis (PCR) Proteus species (PCR) Salmonella spp. (PCR) Serratia marcescens PCR Staphylococcus sp PCR Staph aureus (PCR) mecA/C & MREJ Resist Gene mecA/C-Methicil Resis Gene mcr-1 Colistin Res Gene PCR Staph epidermidis (PCR) Staph lugdunensis PCR S. maltophilia (PCR) Streptococcus sp PCR Group A Strep (PCR) Strep agalactiae (PCR) Strep pneumoniae (PCR) P. aeruginosa (PCR) Funmilayo/B-Vanco Res Genes blaIMP Car res Gene PCR KPC-Carbap Res Gene PCR blaNDM Car Res Gene PCR OXA-48 Carbapenem Resis Gene (PCR) blaVIM Car Res Gene PCR CTX-M Gene Resistance (PCR) PFSH Social History household members: spouse Smoking Status: Never smoker Discharge Plan Discharge Plan Patient Disposition: Home Provider Discharge Comment: Follow up with your new PCP as soon as you can get an appointment. Discharge orders & Medications Prescriptions: New montelukast 10 mg Tablet 10 mg PO DAILY Qty: 30 0RF guaifenesin [Mucus Relief ER] 600 mg Tablet Extended Release 12hr 600 mg PO Q12HR PRN (Reason: Cough) Qty: 15 0RF prednisone 20 mg tablet 20 mg PO DAILY Qty: 10 0RF albuterol sulfate 90 mcg/actuation HFA aerosol inhaler 2 puff inhalation 6XD PRN (Reason: shortness of breath or wheezing) Qty: 8.5 0RF Dulera 200-5 mcg/actuation HFA aerosol inhaler 2 puff inhalation BID Qty: 13 0RF Continued albuterol sulfate 90 mcg/actuation HFA aerosol inhaler 1 inh inhalation Q6H PRN (Reason: shortness of breath or wheezing) lisdexamfetamine 50 mg capsule 50 mg PO DAILY Diet/Activity/Treatments Diet: Regular Visit Report/Discharge Packet Stand Alone Forms: Patient Portal/API, Stroke Signs & Symptoms
--- NOTE | 2025-09-23 09:38 | CM.DPNOTE ---
DCP Note SENIOR CONSULTING MANAGER reviewed EMR per provider cleared to dc today return to work Wednesday. SENIOR CONSULTING MANAGER completed work excuse note, placed on RN desk to give to pt with DC paperwork P: dc home today. no further CM Needs at this time. will continue to follow as needed for DCP Coordination ALYSSA Morris
--- NOTE | 2025-09-23 12:13 | PC.NURSE ---
Discharge: Pt A&Ox4, agreeable to discharge. Education provided to pt on medications, stroke s/s, follow up with PCP as new patient, worsening symptoms. IV discontinued. [facility]
== END 2025-09-23 11:48 | disposition home or self-care (01) | DRG 202 ==
LOC: ED 23:18 → AC 23:55 → ICU 09-21 01:19
PROVIDERS: Family Medicine; Hospitalist; Admitting Provider Internal Medicine; Emergency Provider Emergency Medicine; Referring Provider Emergency Medicine; Visit Provider Internal Medicine
DX: J45.901 Unspecified asthma with (acute) exacerbation (principal); E87.20 Acidosis, unspecified; J98.2 Interstitial emphysema; K52.9 Noninfective gastroenteritis and colitis, unspecified; R09.02 Hypoxemia; E87.6 Hypokalemia
CPT/HCPCS: 36415; 71045; 71275; 74177; 74220; 80048; 80053; 81003; 81015; 82805; 83605; 83690; 83735; 83880; 84145; 84484; 85007; 85025; 87040; 87077; 87086; 87154; 87507; 87637; 93005; 93010; 94640; 94660; 96361; 96365; 96367; 96375; 99285; 99291; J1171; J2405; J2543; J2919; J3475; J7030; J7050; J7060; J7613; Q9967